=== PATIENT | female | born 1980 | race Caucasian/White ===

== ENCOUNTER 2020-05-05 20:55 | Inpatient (IN) | payer OTHER ==
[~2020-05-05] VITALS: Ht 160 cm; Wt 94.3 kg
[2020-05-05] MEDS ORDERED: PRENATAL TABLE1 EAC1 PO (21:20)
[2020-05-05] MEDS ORDERED: SYNTHROID88 MCG PO (21:21)
[2020-05-09] MEDS ORDERED: LEVOTHYROXINE88 MCG PO (11:40)
[2020-05-09] MEDS ORDERED: AMOX1TAB5 PO (11:40)
[2020-05-09] MEDS ORDERED: PEPCID AC20 MG PO (11:40)
== END 2020-05-09 13:41 | disposition home or self-care (01) | DRG 831 ==
LOC: OBS/DEL 20:55 → LDR 05-06 08:04 → OBS/DEL 05-06 08:04 → LDR 05-07 08:51 → OB/GYN 05-08 11:05
PROVIDERS: ADMIT Obstetrics & Gynecology; ATTEND Obstetrics & Gynecology
PROC: BY4CZZZ Ultrasonography of Second Trimester, Single Fetus (ICD-10-PCS; 2020-05-06)
PROC: BW40ZZZ Ultrasonography of Abdomen (ICD-10-PCS; 2020-05-06)
PROC: BF37ZZZ Magnetic Resonance Imaging (MRI) of Pancreas (ICD-10-PCS; principal; 2020-05-07)
DX: O99.612 Diseases of the digestive system complicating pregnancy, second trimester (principal); K85.10 Biliary acute pancreatitis without necrosis or infection; K80.18 Calculus of gallbladder with other cholecystitis without obstruction; Z3A.24 24 weeks gestation of pregnancy; Z20.828 Contact with and (suspected) exposure to other viral communicable diseases

== ENCOUNTER 2020-06-15 17:32 | Inpatient (IN) | payer OTHER ==
[~2020-06-15] VITALS: Ht 160 cm; Wt 91.6 kg
[~2020-06-15 17:32] MED LIST: AMOX1TAB5 PO; LEVOTHYROXINE88 MCG PO; PEPCID AC20 MG PO; PRENATAL TABLE1 EAC1 PO; SYNTHROID88 MCG PO
[2020-06-19] MEDS ORDERED: VITAMIN C500 M1 PO (19:05)
[2020-06-19] MEDS ORDERED: FAMOTIDINE20 MG PO (19:05)
[2020-06-19] MEDS ORDERED: ZINC SULFATE220 M2 PO (19:05)
[2020-06-19] MEDS ORDERED: LEVOTHYROXINE88 MCG PO (19:05)
[2020-06-19] MEDS ORDERED: PROTONIX40 MG PO (19:05)
== END 2020-06-19 19:54 | disposition home or self-care (01) | DRG 832 ==
LOC: OBS/DEL 17:32 → LDR 21:01
PROVIDERS: ADMIT Obstetrics & Gynecology; ATTEND Obstetrics & Gynecology
PROC: BY4FZZZ Ultrasonography of Third Trimester, Single Fetus (ICD-10-PCS; principal; 2020-06-15)
PROC: BW40ZZZ Ultrasonography of Abdomen (ICD-10-PCS; 2020-06-15)
DX: O99.613 Diseases of the digestive system complicating pregnancy, third trimester (principal); O98.513 Other viral diseases complicating pregnancy, third trimester; Z3A.30 30 weeks gestation of pregnancy; K80.50 Calculus of bile duct without cholangitis or cholecystitis without obstruction

== ENCOUNTER 2020-07-16 20:22 | Inpatient (IN) | payer OTHER ==
[~2020-07-16] VITALS: Ht 160 cm; Wt 92.1 kg
[~2020-07-16 20:22] MED LIST changes: +FAMOTIDINE20 MG PO; +PROTONIX40 MG PO; +VITAMIN C500 M1 PO; +ZINC SULFATE220 M2 PO
[2020-07-16] MEDS ORDERED: PRENATAL TABLE1 EAC1 PO (20:32)
[2020-07-16] MEDS ORDERED: SYNTHROID88 MCG PO (20:33)
[2020-08-08] MEDS ORDERED: LEVOTHYROXINE88 MCG PO (14:20)
[2020-08-08] MEDS ORDERED: PREPLUS CA-FE1 EACH PO (14:20)
[2020-08-08] MEDS ORDERED: IBUPROFEN800 MG PO (14:20)
[2020-08-08] MEDS ORDERED: DOCUSATE SODIU100 MG PO (14:20)
== END 2020-08-08 14:34 | disposition home or self-care (01) | DRG 788 ==
LOC: OB/GYN 20:22 → LDR 20:22 → OB/GYN 07-18 14:01
PROVIDERS: ADMIT Obstetrics & Gynecology; ATTEND Obstetrics & Gynecology
PROC: 4A1HXFZ Monitoring of Products of Conception, Cardiac Rhythm, External Approach (ICD-10-PCS; 2020-07-16)
PROC: BY4FZZZ Ultrasonography of Third Trimester, Single Fetus (ICD-10-PCS; 2020-07-17)
PROC: 3E033VJ Introduction of Other Hormone into Peripheral Vein, Percutaneous Approach (ICD-10-PCS; 2020-08-05)
PROC: 3E0P7VZ Introduction of Hormone into Female Reproductive, Via Natural or Artificial Opening (ICD-10-PCS; 2020-08-05)
PROC: 10D00Z1 Extraction of Products of Conception, Low, Open Approach (ICD-10-PCS; principal; 2020-08-05 18:00)
DX: O61.0 Failed medical induction of labor (principal); Z37.0 Single live birth; O13.3 Gestational [pregnancy-induced] hypertension without significant proteinuria, third trimester; Z3A.34 34 weeks gestation of pregnancy; O99.283 Endocrine, nutritional and metabolic diseases complicating pregnancy, third trimester; E03.9 Hypothyroidism, unspecified; O99.613 Diseases of the digestive system complicating pregnancy, third trimester; K80.20 Calculus of gallbladder without cholecystitis without obstruction; Z20.828 Contact with and (suspected) exposure to other viral communicable diseases; Z86.19 Personal history of other infectious and parasitic diseases

== ENCOUNTER 2020-09-24 10:35 | Outpatient (CLI) | payer OTHER ==
[~2020-09-24 10:35] MED LIST changes: +DOCUSATE SODIU100 MG PO; +IBUPROFEN800 MG PO; +PREPLUS CA-FE1 EACH PO
== END 2020-09-24 10:56 | disposition home or self-care (01) ==
LOC: MRI 10:35
PROVIDERS: ATTEND Specialist
DX: K80.80 Other cholelithiasis without obstruction (principal); K85.10 Biliary acute pancreatitis without necrosis or infection
CPT/HCPCS: 74181

== ENCOUNTER 2020-10-15 05:08 | Day surgery (SDC) | payer OTHER ==
[~2020-10-15 05:08] MED LIST changes: +SYNTHROID50 MCG PO
== END 2020-10-15 13:15 | disposition home or self-care (01) ==
LOC: CIR.AMB 05:08
PROVIDERS: ATTEND Specialist
DX: K80.10 Calculus of gallbladder with chronic cholecystitis without obstruction (principal); Z20.822 Contact with and (suspected) exposure to COVID-19